=== PATIENT | female | born 1965 | race Caucasian/White ===

== ENCOUNTER 2019-11-12 07:41 | Outpatient (CLI) | payer MEDICARE, MEDICAID, SELFPAY ==
--- NOTE | 2019-11-12 08:18 | ECG_ITS ---
NAME OF STUDY: LEXISCAN SESTAMIBI STRESS TEST INDICATION: Chest Pain, NOTE: Please note that this is the electrocardiogram portion of the Lexiscan/Sestamibi stress test. The perfusion scan will be documented separately. DATA: Baseline heart rate was 68 beats per minute. Baseline blood pressure was 141/80 millimeters of mercury. Target heart rate was 165. Maximum heart rate achieved was 95. which was 57 % of the predicted target heart rate. Maximum blood pressure was 201/114 millimeters of mercury. The reason for ending the test was completion of the protocol. The patient did not experience any symptoms. ELECTROCARDIOGRAM: BASELINE: Sinus rhythm. Normal axis. Otherwise, no ST-T changes suggestive of ischemia noted. No arrhythmia noted. EXERCISE: After Lexiscan injection, no ST-T changes suggestive of ischemic noted. No arrhythmia noted. 1. EKG not suggestive of ischemia 2. Lexiscan injection unremarkable. 3. Perfusion scan will be documented separately. Electronically Signed On 11-19-2019 13:51:50 RN FORENSIC by Edwin Smith M.D. [id number]
--- NOTE | 2019-11-12 08:19 | NMCV_ITS ---
NM MIBI/MIBI Stress/Rest [id number] Anabel Fermin Age: 54 Gender: F : 1965 Exam Date: 11/12/2019 09:46 Ordering Phys: Edwin Smith MD ([email or web address]) Technologist: KSENIA Hernandez Exam [facility]: [facility] Indications: Chest pain, claudication STRESS TEST [facility] IMAGE PROTOCOL Rest/Stress 1 Lexiscan Day Radiopharmaceutical Dose (mCi) Administration Site Administered by Rest: Tc-99m 9.6 IV KSENIA Hernandez Sestamibi Stress:Tc-99m 31.4 IV KSENIA Hernandez Sestamibi Rest: 12-Nov-2019 60 Discovery 630 Stress: 12-Nov-2019 60 Discovery 630 0.4mg Lexiscan. Images obtained in supine and prone position. SPECT RESULTS Technical Quality: Good Raw Data Analysis: Soft tissue attenuation Image Corrections: No attenuation or motion correction applied Summed Stress Score: 2 Summed Rest Score: 0 Summed Difference Score: 2 PERFUSION FINDINGS SPECT images demonstrate homogeneous tracer distribution throughout the myocardium. FUNCTIONAL RESULTS (calculated via Gated SPECT) Stress Image LV EF (%): 74 Stress EDV (mL):42 TID: 1.21 Stress ESV (mL):11 Rest Image LV EF (%): 74 FUNCTIONAL FINDINGS: There is normal left ventricular systolic function. IMPRESSIONS Myocardial perfusion imaging is normal and low probability for obstructive coronary disease.TID ratio is elevated which could be secondary to left ventricle hypertrophy/subendocardial ischemia in the absence of other parameters. Edwin Smith MD (Electronically Signed) Final Date: 12 November 2019 12:44 S
[2019-11-12 08:20] VITALS: BMI 32.9
[2019-11-12] MEDS: regadenoson 0.4 Mg/5 ml Syringe IVP (10:59)
[2019-11-12 11:00] VITALS: BP 197/102; PULSE 89
--- NOTE | 2019-11-12 12:45 | USCV_ITS ---
Anabel Fermin Age: 54 Gender: F : 1965 Exam Date: 11/12/2019 11:02 Ordering Phys: Edwin Smith MD ([email or web address]) Technologist: Exam Location: [facility] [place] Indication: CLAUDICATION RIGHT LEFT Brachial 168.00 mmHg Brachial mmHg Pressure (mmHg) Waveform Pressure (mmHg) Waveform 194.00 DIRECTOR OF SECURITY 171.00 174.00 DPA 190.00 1.15 Ankle/Brachial Index 1.13 0.98 Post-Exercise Ankle Brachial Index 0.98 107.00 Pre-Exercise Toe Pressure 120.00 0.64 Pre-Exercise Toe/Brachial Index 0.71 FINDINGS Normal resting ABIs bilaterally Minimal post exercise SORAIDA Slightly diminished resting TBI on the right side New resting TBI on the left side CONCLUSIONS Features suggest mild peripheral artery disease bilaterally Dr Jayjay Ramirez MD [facility] (Electronically Signed) Final Date: 13 November 2019 10:15 S
== END 2019-11-12 07:42 | disposition home or self-care (01) ==
PROVIDERS: Family Provider Nurse Practitioner; PCP Nurse Practitioner; Visit Provider Internal Medicine Cardiovascular Disease
DX: R07.89 Other chest pain (principal); I73.9 Peripheral vascular disease, unspecified
CPT/HCPCS: 78452; 93017; 93922; A9500; J2785

== ENCOUNTER → 2019-12-13 13:00 | Outpatient (BNVA) | payer MEDICARE, MEDICAID, SELFPAY | PROVIDERS: Family Provider Nurse Practitioner; PCP Nurse Practitioner; Visit Provider Nurse Practitioner | DX: G89.29 Other chronic pain (principal); M54.2 Cervicalgia; M54.9 Dorsalgia, unspecified; Z79.891 Long term (current) use of opiate analgesic | CPT/HCPCS: 99214 ==

== ENCOUNTER → 2019-12-25 09:46 | Outpatient (BNVA) | payer MEDICARE, MEDICAID, SELFPAY | PROVIDERS: Family Provider Nurse Practitioner; PCP Nurse Practitioner; Visit Provider Nurse Practitioner | DX: M79.7 Fibromyalgia (principal); Z13.6 Encounter for screening for cardiovascular disorders; E55.9 Vitamin D deficiency, unspecified; G47.33 Obstructive sleep apnea (adult) (pediatric); I10 Essential (primary) hypertension; K21.9 Gastro-esophageal reflux disease without esophagitis | CPT/HCPCS: 80053; 80061; 82306; 84443 ==

== ENCOUNTER → 2020-02-05 13:17 | Outpatient (BNVA) | payer MEDICARE, SELFPAY | PROVIDERS: Family Provider Nurse Practitioner; PCP Nurse Practitioner; Visit Provider Anesthesiology | DX: Z76.89 Persons encountering health services in other specified circumstances (principal) ==

== ENCOUNTER → 2020-05-15 09:58 | Outpatient (BNVA) | payer MEDICARE, SELFPAY | PROVIDERS: Family Provider Nurse Practitioner; PCP Nurse Practitioner; Visit Provider Anesthesiology | DX: G89.29 Other chronic pain (principal); M54.42 Lumbago with sciatica, left side; M54.2 Cervicalgia; M54.9 Dorsalgia, unspecified; Z79.891 Long term (current) use of opiate analgesic | CPT/HCPCS: 99214 ==

== ENCOUNTER → 2020-07-08 09:06 | Outpatient (BNVA) | payer MEDICARE, SELFPAY | PROVIDERS: Family Provider Nurse Practitioner; PCP Nurse Practitioner; Visit Provider Anesthesiology | DX: G89.29 Other chronic pain (principal); M54.42 Lumbago with sciatica, left side; M54.41 Lumbago with sciatica, right side; M54.2 Cervicalgia; M54.9 Dorsalgia, unspecified; F17.210 Nicotine dependence, cigarettes, uncomplicated; Z79.891 Long term (current) use of opiate analgesic | CPT/HCPCS: 99213; 99214 ==

== ENCOUNTER → 2020-09-02 09:22 | Outpatient (BNVA) | payer MEDICARE, SELFPAY | PROVIDERS: Family Provider Nurse Practitioner; PCP Nurse Practitioner; Visit Provider Anesthesiology | DX: G89.29 Other chronic pain (principal); M54.2 Cervicalgia; M54.9 Dorsalgia, unspecified; F17.210 Nicotine dependence, cigarettes, uncomplicated; Z79.891 Long term (current) use of opiate analgesic | CPT/HCPCS: 99213; 99214 ==

== ENCOUNTER → 2020-09-25 10:26 | Outpatient (BNVA) | payer MEDICARE, SELFPAY | PROVIDERS: Family Provider Nurse Practitioner; PCP Nurse Practitioner; Visit Provider Nurse Practitioner Family | DX: Z20.828 Contact with and (suspected) exposure to other viral communicable diseases (principal); J44.1 Chronic obstructive pulmonary disease with (acute) exacerbation; J44.9 Chronic obstructive pulmonary disease, unspecified | CPT/HCPCS: 87635 ==

== ENCOUNTER → 2020-11-03 08:43 | Outpatient (BNVA) | payer MEDICARE, SELFPAY | PROVIDERS: Family Provider Nurse Practitioner; PCP Nurse Practitioner; Visit Provider Nurse Practitioner | DX: E11.69 Type 2 diabetes mellitus with other specified complication (principal); E78.5 Hyperlipidemia, unspecified; I10 Essential (primary) hypertension; E55.9 Vitamin D deficiency, unspecified | CPT/HCPCS: 80053; 80061; 82306; 84443; 85025 ==

== ENCOUNTER → 2020-11-10 13:41 | Outpatient (BNVA) | payer MEDICARE, SELFPAY | PROVIDERS: Family Provider Nurse Practitioner; PCP Nurse Practitioner; Visit Provider Anesthesiology | DX: G89.29 Other chronic pain (principal); M54.9 Dorsalgia, unspecified; M54.2 Cervicalgia; F17.210 Nicotine dependence, cigarettes, uncomplicated; Z79.891 Long term (current) use of opiate analgesic | CPT/HCPCS: 99214 ==

== ENCOUNTER → 2020-11-23 10:21 | Outpatient (BNVA) | payer MEDICARE, SELFPAY | PROVIDERS: Family Provider Nurse Practitioner; PCP Nurse Practitioner; Visit Provider Nurse Practitioner | DX: I10 Essential (primary) hypertension (principal); J44.9 Chronic obstructive pulmonary disease, unspecified; E55.9 Vitamin D deficiency, unspecified; K21.9 Gastro-esophageal reflux disease without esophagitis; G25.81 Restless legs syndrome; M79.7 Fibromyalgia; N95.2 Postmenopausal atrophic vaginitis; E78.2 Mixed hyperlipidemia; M19.90 Unspecified osteoarthritis, unspecified site | CPT/HCPCS: 80053; 81000; 85025 ==

== ENCOUNTER → 2020-12-08 09:38 | Outpatient (BNVA) | payer MEDICARE, SELFPAY | PROVIDERS: Family Provider Nurse Practitioner; PCP Nurse Practitioner; Visit Provider Anesthesiology | DX: G89.29 Other chronic pain (principal); M54.9 Dorsalgia, unspecified; M54.2 Cervicalgia; F17.210 Nicotine dependence, cigarettes, uncomplicated; Z79.891 Long term (current) use of opiate analgesic | CPT/HCPCS: 99214 ==

== ENCOUNTER → 2021-02-02 09:24 | Outpatient (BNVA) | payer MEDICARE, SELFPAY | PROVIDERS: Family Provider Nurse Practitioner; PCP Nurse Practitioner; Visit Provider Anesthesiology | DX: G89.29 Other chronic pain (principal); M54.9 Dorsalgia, unspecified; M54.2 Cervicalgia; F17.210 Nicotine dependence, cigarettes, uncomplicated; Z79.891 Long term (current) use of opiate analgesic | CPT/HCPCS: 99214 ==

== ENCOUNTER → 2021-02-25 10:05 | Outpatient (BNVA) | payer MEDICARE, SELFPAY | PROVIDERS: Family Provider Nurse Practitioner; PCP Nurse Practitioner; Visit Provider Nurse Practitioner | DX: E55.9 Vitamin D deficiency, unspecified (principal); I10 Essential (primary) hypertension; E78.2 Mixed hyperlipidemia; J44.9 Chronic obstructive pulmonary disease, unspecified | CPT/HCPCS: 80053; 82306; 82607; 84443; 85025 ==

== ENCOUNTER → 2021-04-09 09:30 | Outpatient (BNVA) | payer MEDICARE, SELFPAY | PROVIDERS: Family Provider Nurse Practitioner; PCP Nurse Practitioner; Visit Provider Anesthesiology | DX: G89.29 Other chronic pain (principal); M54.2 Cervicalgia; M54.9 Dorsalgia, unspecified; F17.210 Nicotine dependence, cigarettes, uncomplicated; Z79.891 Long term (current) use of opiate analgesic | CPT/HCPCS: 99213; 99214 ==

== ENCOUNTER 2021-04-20 12:04 | Emergency (ER) | payer MEDICARE, SELFPAY ==
[2021-04-20 12:16] VITALS: BP 188/121; PULSE 71; RESP 20; TEMP 36.7; O2SAT 96; BMI 30.7
--- NOTE | 2021-04-20 12:57 | ED_ITS ---
HPI - Animal Bite General: Chief Complaint: Animal Bite Stated Complaint: R hand animal bite Time Seen by Provider: 04/20/21 12:31 History of Present Illness: HPI narrative: Patient is a 56-year-old female who comes to the ED with cat bite on her right hand. Cat bite occurred yesterday. She says she takes an a lot of cats in. The cat that bit her she raised from , but it has not recieved rabies vaccinations. The cat is an outdoor cat as well. The bite occurred when her dog was chasing after the cat and she tried separate the cat and the dog. The cat then bit her right index finger.. She now has swelling and erythema warmth and right hand and index finger. Patient is unsure of last tetanus shot and would like to get an updated tetanus today in the ED. Patient denies any fever, chills, nausea/vomiting, abdominal pain, bladder or bowel symptoms. Associated symptoms: Deny chills, fever(s) or headache(s) Review of Systems Const: Denies: fever(s), chills or fatigue Eyes: Denies: change in vision or eye discomfort ENMT: Denies: throat pain, odynophagia, nasal discharge or nasal congestion Card: Denies: chest pain, palpitations, edema, swelling of feet/ankles, dyspnea on exertion or orthopnea Resp: Denies: dyspnea, productive cough or non-productive cough GI: Denies: abdominal pain, nausea, vomiting, diarrhea, constipation or hematochezia : Denies: flank pain, dysuria or hematuria Musc: Reports: extremity pain (right hand) and extremity swelling (right hand swelling); Denies: neck pain or back pain Skin/Breast: Reports: new lesions (2 bite madden on 2nd digit of R hand w/ surrounding erythema and swelling); Denies: rash Neuro: Denies: headache(s), numbness in extremities or weakness in extremities PFS ED PFSH: Medical History Atrophic vaginitis Chest pain Chronic back pain greater than 3 months duration COPD (chronic obstructive pulmonary disease) Encounter for long-term opiate analgesic use Enrolled in chronic care management Essential hypertension Fibromyalgia GERD (gastroesophageal reflux disease) History of trigger finger trigger finger release on right hand thumb, 2nd finger and 4th finger Hyperlipemia, mixed Neck pain of over 3 months duration Obesity Opioid contract exists ALFRED (obstructive sleep apnea) Osteoarthritis Polycythemia Restless legs Shortness of breath Vitamin D deficiency Surgical History Amputation of left arm History of carpal tunnel surgery of right wrist Hx laparoscopic cholecystectomy 05/18/09 Hx of amputation 1975 left arm due to tractor accident performed in [place] Hx of decompression of ulnar nerve right ulnar nerve transposition of right ulnar nerve 06/01/09 Hx of hysterectomy 1998 Hx of removal of cyst behind ear as child Hx of shoulder surgery open acromoplasty of right shoulder 03/17/10-Dr. Hall at [facility] [place] Family History Unknown No problems noted. Father Cancer Lung Hypertension Sister Hypertension Mother Stroke Social History Smoking and tobacco status: current some day smoker cigarettes Quit status (tobacco): has quit using tobacco Second hand smoke exposure: No Smoking risk assessment/counseling performed?: No Alcohol intake: never Desire information about alcohol rehabilitation?: No Counseling given: No Desire information about substance/drug rehabilitation?: No Counseling given: No Caregiver/support person: Yes Lives independently: Yes Household members: spouse Housing: House Marital status: service: No Current occupational status: employed Current occupation: [employer] History of recent travel: No Current gender identity: Female Physical Exam Const: COMMON NORMALS: no acute distress, patient oriented x3 and alert GE NERAL APPEARANCE: cooperative and comfortable HENMT: COMMON NORMALS: normocephalic HEAD & SCALP: normocephalic MOUTH: Normal oral and palatal mucosa present THROAT: posterior oropharynx normal and uvula midline Neck/C-Spine: COMMON NORMALS: supple GENERAL: Yes normal visual inspection Resp: COMMON NORMALS: normal respiratory effort, No retractions, No use of accessory muscles and clear to auscultation bilaterally AUSCULTATION: clear to auscultation bilaterally Cardio: COMMON NORMALS: regular rate, regular rhythm, S1 normal heart sound present, S2 normal heart sound present, No gallops present (Cardio), No clicks present (Cardio), No murmurs present (Cardio) and Peripheral pulses 2+ throughout RATE: regular rate RHYTHM: regular rhythm HEART SOUNDS: S1 normal heart sound present and S2 normal heart sound present PERIPHERAL PULSES: Peripheral pulses 2+ throughout GI: COMMON NORMALS: Normal to inspection, nondistended, normoactive bowel sounds present, Soft to palpation, non-tender and no masses PALPATION: Yes Soft to palpation : COMMON NORMALS: Yes no CVA tenderness BLADDER/KIDNEY EXAM: Yes no CVA tenderness Back/Pelvis: COMMON NORMALS: no CVA tenderness Extremity: NARRATIVE EXTREMITY EXAM: Patient is to superficial puncture wounds on second digit on right hand. She has surrounding erythema, warmth and tenderness and index finger and right hand. Exam findings suggestive of cellulitis developing from cat bite. GENERAL: Yes normal exam except as noted Neuro: COMMON NORMALS: patient oriented x3 and moves all extremities SENSORIUM/ORIENTATION: Yes alert Skin: NARRATIVE SKIN EXAM: Patient is to superficial puncture wounds on second digit on right hand. She has surrounding erythema, warmth and tenderness and index finger and right hand. No purulent drainage seen. Exam findings suggestive of cellulitis developing from cat bite. GENERAL SKIN EXAM: dry skin Course ED course: Spoke with patient about rabies vaccination and starting the postexposure prophylaxis shots today. Patient stated she would rather go home and self quarantine the cat and take it to animal control for observation. I told patient that if she is unable to do that the next 24 to 48 hours she can return to the ED immediately to get started on rabies vaccination series. Patient understood and agreed with plan. Vital Signs: Vital signs: Vital Signs Temperature 98.1 F 04/20/21 12:16 Pulse Rate 71 04/20/21 12:16 Respiratory Rate 20 H 04/20/21 12:16 Blood Pressure 188/121 04/20/21 12:16 Pulse Oximetry 96 04/20/21 12:16 MDM - Animal Bite MDM Narrative: Medical decision making narrative: Patient female comes to the ED with cat bite on right hand with swelling and redness of the right hand. Exam findings are suggestive of cat bite with cellulitis present. No purulent drainage noted. Patient was discharged home with a prescription for Augmentin and azithromycin. Return to ED precautions given. Follow-up with PCP in 7 days for reevaluation. Patient understood and agreed with plan. Discharge Plan Discharge Patient Disposition: Home Clinical Impression: Cat bite of right hand with infection Qualifiers: Encounter type: initial encounter Qualified Code(s): S61.451A - Open bite of right hand, initial encounter Condition: Stable Prescriptions: New azithromycin 250 mg tablet See Rx Instructions .ROUTE .COMPLEX Qty: 6 RF: 0 Augmentin 500-125 mg tablet 1 tab PO BID 10 Days Qty: 20 RF: 0 No Action nitroglycerin [Nitrostat] 0.4 mg tablet, sublingual 0.4 mg SUBLINGUAL ONCE PRNRF: 0 aspirin 81 mg tablet,delayed release (DR/EC) 81 mg PO DAILY RF: 0 albuterol sulfate 2.5 mg /3 mL (0.083 %) solution for nebulization 2.5 mg INHALATION Q6H RF: 0 furosemide [Lasix] 20 mg tablet 20 mg PO QAM Qty: 30 RF: 2 clonidine HCl 0.1 mg tablet 0.1 mg PO BID Qty: 60 RF: 0 cyclobenzaprine 10 mg tablet 10 mg PO TID PRN (Reason: muscle spasm) 30 Days Qty: 90 RF: 1 oxycodone 15 mg tablet 15 mg PO .5 times a day PRN (Reason: pain) 30 Days Qty: 150 RF: 0 oxycodone 15 mg tablet 15 mg PO .5 times a day PRN (Reason: pain) 30 Days Qty: 150 RF: 0 tramadol 50 mg tablet 50 mg PO QID PRN (Reason: pain) 30 Days Qty: 120 RF: 0 fenofibrate nanocrystallized 145 mg tablet 145 mg PO .QD Qty: 30 RF: 2 albuterol sulfate [ProAir HFA] 90 mcg/actuation HFA aerosol inhaler 2 inh INHALATION Q6H PRN (Reason: shortness of breath or wheezing) Qty: 8.5 RF: 2 cholecalciferol (vitamin D3) 125 mcg (5,000 unit) tablet 10,000 unit PO DAILY Qty: 60 RF: 2 esomeprazole magnesium 20 mg capsule,delayed release(DR/EC) 20 mg PO .QD Qty: 30 RF: 2 estradiol [Estrace] 0.01 % (0.1 mg/gram) cream 1 g vaginal .on & Qty: 42.5 RF: 0 ropinirole 2 mg tablet 2 mg PO DIRECTED Qty: 120 RF: 2 Spiriva Respimat 2.5 mcg/actuation mist 2 puff INHALATION DAILY Qty: 4 RF: 2 lisinopril 20 mg tablet 20 mg PO DAILY 30 Days Qty: 30 RF: 0 metoprolol tartrate 25 mg tablet 25 mg PO DAILY 30 Days Qty: 30 RF: 0 trazodone 50 mg tablet 50 mg PO .Q HS PRN (Reason: insomnia) Qty: 30 RF: 2 Discharge Orders: Discharge ED (Routine); Ordered 04/20/21 Ordered By: Miguel Randolph Referrals: Ban Lee, [facility] [Primary Care Provider] - Discharge Diet: Regular Discharge Activity: Resume usual activity Patient Instructions: Animal Bite (ED), Cellulitis (ED) Activity Restrictions/Additional Instructions: Follow-up with medical provider as directed in 5 to 7 days for reevaluation. Self quarantine the cat and take it to animal control for observation. If you are unable to do so you can return to the ED in the next 24 to 48 hours to start rabies vaccination series. Take medications as prescribed. Apply cold pack on hand to help with swelling. Take [id number] ibuprofen or Tylenol for pain. Return to the ER or your medical provider if condition worsens. Please read and understand discharge instructions. Thank you for choosing [facility] for your healthcare needs today. Please realize this is an emergency room and that we are providing you with a medical screening exam and this may not be complete and all inclusive of all the testing and or work up that you may need to determine your ailment or severity of your illness. It is very important that you follow up as instructed or that you return to the Emergency Department should you have concerns or if your condition changes or worsens in any way. Coding Level of Care Code ED Scientific Systems Analyst for Scooby Roper Exam Comprehensive
[2021-04-20] MEDS: tetanus-dipt-pertussis 0.5 mL SDV IM (13:29)
[2021-04-20] MEDS: amoxicillin-clav 500-125 mg Tablet 1 TAB PO (13:30)
[2021-04-20] MEDS: HYDROcodone-acetaminophen 7.5-325 mg Tablet 1 TAB PO (13:30)
--- NOTE | 2021-04-20 13:32 | PC.NURSE ---
This RN reported animal bite to [facility]'s Office. Pt aware. Pt refusing rabies treatment as she is taking her cat to animal control to be tested. Pt refused to this RN and Miguel THAKUR.
== END 2021-04-20 13:35 | disposition home or self-care (01) ==
PROVIDERS: Emergency Provider Physician Assistant; PCP Nurse Practitioner
DX: S61.451A Open bite of right hand, initial encounter (principal); W55.01XA Bitten by cat, initial encounter; Z79.82 Long term (current) use of aspirin; J44.9 Chronic obstructive pulmonary disease, unspecified; I10 Essential (primary) hypertension; E78.2 Mixed hyperlipidemia; Z89.202 Acquired absence of left upper limb, unspecified level; F17.210 Nicotine dependence, cigarettes, uncomplicated; Z23 Encounter for immunization
CPT/HCPCS: 90471; 90715; 99283

== ENCOUNTER → 2021-06-08 10:10 | Outpatient (BNVA) | payer MEDICARE, SELFPAY | PROVIDERS: PCP Nurse Practitioner; Visit Provider Anesthesiology | DX: G89.29 Other chronic pain (principal); M54.2 Cervicalgia; M54.5 Low back pain; F17.210 Nicotine dependence, cigarettes, uncomplicated; Z79.891 Long term (current) use of opiate analgesic | CPT/HCPCS: 99214 ==

== ENCOUNTER → 2021-07-09 09:51 | Outpatient (BNVA) | payer MEDICARE, SELFPAY | PROVIDERS: PCP Nurse Practitioner; Visit Provider Nurse Practitioner Family | DX: I10 Essential (primary) hypertension (principal); J44.9 Chronic obstructive pulmonary disease, unspecified; E78.2 Mixed hyperlipidemia; M79.7 Fibromyalgia; E55.9 Vitamin D deficiency, unspecified; K21.9 Gastro-esophageal reflux disease without esophagitis; G25.81 Restless legs syndrome; R32 Unspecified urinary incontinence | CPT/HCPCS: 80053; 80061; 84443; 85025 ==

== ENCOUNTER → 2021-08-03 09:22 | Outpatient (BNVA) | payer MEDICARE, SELFPAY | PROVIDERS: PCP Nurse Practitioner; Visit Provider Anesthesiology | DX: G89.29 Other chronic pain (principal); M54.5 Low back pain; M54.2 Cervicalgia; Z79.891 Long term (current) use of opiate analgesic | CPT/HCPCS: 99214 ==

== ENCOUNTER → 2021-10-08 09:14 | Outpatient (BNVA) | payer MEDICARE, SELFPAY | PROVIDERS: PCP Nurse Practitioner; Visit Provider Anesthesiology | DX: G89.29 Other chronic pain (principal); M54.50 Low back pain, unspecified; M54.2 Cervicalgia; Z79.891 Long term (current) use of opiate analgesic; F17.200 Nicotine dependence, unspecified, uncomplicated; Z71.6 Tobacco abuse counseling | CPT/HCPCS: 99214; 99406 ==

== ENCOUNTER → 2021-11-08 10:15 | Outpatient (BNVA) | payer MEDICARE, SELFPAY | PROVIDERS: PCP Nurse Practitioner; Visit Provider Nurse Practitioner Family | DX: I10 Essential (primary) hypertension (principal); E78.2 Mixed hyperlipidemia; E55.9 Vitamin D deficiency, unspecified; G25.81 Restless legs syndrome; R32 Unspecified urinary incontinence; K21.9 Gastro-esophageal reflux disease without esophagitis; G47.00 Insomnia, unspecified | CPT/HCPCS: 80053; 80061; 82306; 84443; 84484; 85025 ==

== ENCOUNTER 2021-11-12 09:31 | Emergency (ER) | payer MEDICARE, SELFPAY ==
[2021-11-12] VITALS (8 sets, daily range): BP systolic 138–240; BP diastolic 72–112; PULSE 67–87; RESP 18; TEMP 37.1; O2SAT 97–100; BMI 31.1
--- NOTE | 2021-11-12 09:33 | ECG_ITS ---
[facility] Test Date: 2021-11-12 Pat Name: Anabel Fermin Department: Room: Gender: Female Motor Vehicle Salesperson: : 1965 Requested By: Diane Ann Order Number: [id number] Estela MD: Jayajy Ramirez M.D. Measurements Intervals Logan Rate: 67 P: 76 MN: 179 QRS: 54 QRSD: 82 T: 57 QT: 415 QTc: 439 Interpretive Statements SINUS RHYTHM POSSIBLE RIGHT ATRIAL ENLARGEMENT [0.25mV P-WAVE] POSSIBLE LEFT ATRIAL ENLARGEMENT [-0.1mV P-WAVE IN V1/V2] No previous ECG available for comparison Electronically Signed On 11-12-2021 17:53:01 CREATIVE SERVICES DIRECTOR by Jayjay Ramirez M.D. [id number]
--- NOTE | 2021-11-12 09:40 | W.ED.GENADLT ---
HPI - General Adult General: Chief complaint: General Medical Stated complaint: HYPERTENSION Time Seen by Provider: 11/12/21 09:40 History of Present Illness: HPI narrative: 56 yo female with complaints of elevated BP. She did take her medicaitons this AM. SHe recently had her lisinopril and metoprolol increased. She is complaining of a headache. she denies any chest pain. No difficulty speech or swallowing no shortness of breath no nausea vomiting or diarrhea initially. She has been having elevated blood pressure problems for well over a week now. Onset (ago): hour(s) Location: head Severity: mild Relieving factors: none Exacerbating factors: none Associated symptoms: Deny chest pain, confusion, cough, diaphoresis, decreased appetite, dyspnea, fevers/chills, headache(s), malaise, nausea, rash, palpitations, seizures, short of breath, syncope, vomiting or weakness Treatments prior to arrival: none Review of Systems Const: Denies: malaise or diaphoresis ENMT: Denies: throat pain, ear or mastoid pain, nasal discharge or nasal congestion Card: Denies: chest pain, palpitations or syncope Resp: Denies: dyspnea GI: Denies: nausea or vomiting : Denies: flank pain, difficulty voiding, dysuria, urinary frequency or urinary urgency Skin/Breast: Denies: rash Neuro: Denies: headache(s) or confusion PFSH ED PFSH: Medical History Atrophic vaginitis Chest pain Chronic back pain greater than 3 months duration Chronic neck and back pain COPD (chronic obstructive pulmonary disease) Encounter for long-term opiate analgesic use Enrolled in chronic care management Essential hypertension Fibromyalgia GERD (gastroesophageal reflux disease) History of trigger finger trigger finger release on right hand thumb, 2nd finger and 4th finger Hyperlipemia, mixed Neck pain of over 3 months duration Obesity Opioid contract exists ALFRED (obstructive sleep apnea) Osteoarthritis Polycythemia Restless legs Shortness of breath Vitamin D deficiency Surgical History Amputation of left arm History of carpal tunnel surgery of right wrist Hx laparoscopic cholecystectomy 05/18/09 Hx of amputation 1976 left arm due to tractor accident performed in [place] Hx of decompression of ulnar nerve right ulnar nerve transposition of right ulnar nerve 06/01/09 Hx of hysterectomy 1998 Hx of removal of cyst behind ear as child Hx of shoulder surgery open acromoplasty of right shoulder 03/17/10-Dr. Hall at [facility] [place] Family History Unknown No problems noted. Father Cancer Lung Hypertension Sister Hypertension Mother Stroke Social History Second hand smoke exposure: No Smoking risk assessment/counseling performed?: Yes Tobacco counseling given: provider counseling and counseling >3 minutes Alcohol intake: never Desire information about alcohol rehabilitation?: No Counseling given: No Desire information about substance/drug rehabilitation?: No Counseling given: No Caregiver/support person: Yes Lives independently: Yes Household members: spouse Housing: House Marital status: service: No Current occupational status: employed Current occupation: [employer] History of recent travel: No Current gender identity: Female Physical Exam Const: COMMON NORMALS: no acute distress GENERAL APPEARANCE: cooperative and comfortable ORIENTATION/CONSCIOUSNESS: Yes awake, Yes oriented to person, Yes oriented to place and Yes oriented to time Neck/C-Spine: COMMON NORMALS: no JVD Resp: COMMON NORMALS: normal respiratory effort, No retractions, No use of accessory muscles and clear to auscultation bilaterally AUSCULTATION: clear to auscultation bilaterally Cardio: COMMON NORMALS: no JVD, regular rate, regular rhythm and No murmurs present (Cardio) RATE: regular rate RHYTHM: regular rhythm GI: COMMON NORMALS: Soft to palpation and No hepatosplenomegaly present AUSCULTATION: Yes normoactive bowel sounds PALPATION: Yes Soft to palpation, No Tenderness to palpation present (GI), No Guarding due to palpation present (GI) and Yes No hepatosplenomegaly present Extremity: COMMON NORMALS: normal to inspection, capillary refill normal, no clubbing, cyanosis or edema, no calf tenderness and no pedal edema Neuro: SENSORIUM/ORIENTATION: Yes oriented to person, Yes oriented to place and Yes oriented to time Skin: COMMON NORMALS: no rashes or lesions noted GENERAL SKIN EXAM: no rashes or lesions noted Course Vital Signs: Vital signs: Vital Signs Temperature 98.7 F 11/12/21 09:32 Pulse Rate 87 11/12/21 14:30 Respiratory Rate 18 11/12/21 14:30 Blood Pressure 148/72 11/12/21 14:30 Pulse Oximetry 98 11/12/21 14:30 MDM - General Adult MDM Narrative: Medical decision making narrative: Blood pressure is improved. She did have a transient episode where she got very nauseous and threw up several times it was shortly after her blood pressure decreased about 10 minutes after receiving some IV medications. Was concerned due to head CT discussed with Dr. Davis she had some concerning finding around the vertebrals which did fit clinically with what we had seen with the patient in the emergency room. I was concerned that she may have developed poor perfusion in the posterior circulation with her blood pressure decreasing. Her symptoms resolved the CTA was done Dr. Davis and I discussed Dr. Davis reports she does not see any sign of stenosis or embolism and that distribution. Patient symptoms of all resolved her blood pressure is better and she is feeling much better she like to go home. We will stop her metoprolol tartrate changed her to Toprol-XL 25 mg daily and add amlodipine 10 mg daily and have her follow-up with her primary care doctor within the next week return to the emergency room if she has any further problems. Lab Data: Labs: Lab Results 11/12/21 11/12/21 11/12/21 09:46 09:46 10:44 WBC 6.7 10^3/uL 10^3/ uL (4.0-10.0) RBC 5.75 10^6/uL H 10 ^6/uL (4.1-5.3) Hgb 16.2 g/dL H g/dL (11.5-15.3) Hct 50.9 % H % (37.0-47.0) MCV 88.5 fl fl (81-99) MCH 28.2 pg pg (28.0-34.0) MCHC 31.8 g/dL g/dL (30.0-36.0) RDW 13.2 % % (12.1-15.1) Plt Count 285 10^3/cmm 10^3 /cmm (130-400) MPV 9.7 fL fL (7.4-10.4) Neut % (Auto) 63.7 % % Lymph % (Auto) 25.6 % % [place] % (Auto) 8.3 % % Eos % (Auto) 1.9 % % Baso % (Auto) 0.4 % % Neut # (Auto) 4.26 10^3/uL 10^3 /uL (1.8-7.7) Lymph # (Auto) 1.7 10^3/uL 10^3/ uL (0.8-4.8) [place] # (Auto) 0.6 10^3/uL 10^3/ uL (0.2-0.9) Eos # (Auto) 0.1 10^3/uL 10^3/ uL (0.0-0.8) Baso # (Auto) 0.0 10^3/uL 10^3/ uL (0.0-0.1) Nucleated RBC % (a uto) 0 % % Nucleated RBCs # 0.0 /100WBC /100W BC Sodium 139 mmol/L mmol/L (136-145) Potassium 4.4 mmol/L mmol/L (3.5-5.1) Chloride 105 mmol/L mmol/L (98-107) Carbon Dioxide 23 mmol/L mmol/L (22-29) Anion Gap 15.4 (5-19) BUN 14 mg/dL mg/dL (6-20) Creatinine 0.8 mg/dL mg/dL (0.5-0.9) GFR Calculation 73.9 mL/min L mL/ min (90-130) Glucose 102 mg/dL mg/dL (65-115) Calculated Osmolal ity 289 mOsm/kg mOsm/ kg (285-295) Calcium 8.3 mg/dL L mg/dL (8.5-10.5) Total Bilirubin 0.2 mg/dL mg/dL (0.15-1.2) AST 12 U/L U/L (0-32) ALT 12 U/L U/L (0-33) Alkaline Phosphata se 105 IU/L IU/L (35-105) Total Protein 6.8 g/dL g/dL (6.6-8.7) Albumin 3.9 g/dL g/dL (3.5-5.2) Globulin 2.9 g/dL g/dL (1.3-4.6) Urine Color Yellow (Yellow) Urine Appearance Cloudy (CLEAR) Urine pH 7 (5-7) Ur Specific Gravit y 1.015 (1.005-1.030) Urine Protein Neg (Negative) Urine Glucose (UA) Norm (Normal) Urine Ketones Negative (Negative) Urine Blood 2+ H (Negative) Urine Nitrate Positive H (Negative) Urine Bilirubin Neg (Negative) Urine Urobilinogen Norm mg/dL mg/dL (Negative) Ur Leukocyte Nena ase Negative (Negative) Urine RBC 0-4 /hpf H /hpf (0-2) Urine WBC 5-10 /hpf H /hpf (0-5) Ur Squamous Epith Cells 0-4 /hpf H /hpf (0-5) Amorphous Sediment Not Reportable Urine Bacteria 3+ /hpf H /hpf (NONE) Discharge Plan Discharge Patient Disposition: Home Clinical Impression: Accelerated hypertension Condition: Stable Prescriptions: New amlodipine 10 mg tablet 10 mg PO DAILY Qty: 30 RF: 0 Toprol XL 25 mg tablet extended release 24 hr 25 mg PO DAILY Qty: 30 RF: 0 Discontinued metoprolol tartrate 25 mg tablet 25 mg PO BID 30 Days Qty: 60 RF: 2 No Action oxycodone 15 mg tablet 15 mg PO .5 times a day PRN (Reason: pain) 30 Days Qty: 150 RF: 0 tramadol 50 mg tablet 50 mg PO QID PRN (Reason: pain) 30 Days Qty: 120 RF: 0 tizanidine 4 mg tablet 4 mg PO BID PRN (Reason: muscle spasticity) 30 Days Qty: 60 RF: 1 furosemide [Lasix] 20 mg tablet 20 mg PO QAM Qty: 30 RF: 2 albuterol sulfate [ProAir HFA] 90 mcg/actuation HFA aerosol inhaler 2 inh INHALATION Q6H PRN (Reason: shortness of breath or wheezing) Qty: 8.5 RF: 2 clonidine HCl 0.1 mg tablet 0.1 mg PO BID PRN (Reason: use SBP >180 or DBP>90 ) RF: 0 trazodone 50 mg tablet 50 mg PO BEDTIME PRN (Reason: insomnia) RF: 0 oxybutynin chloride 10 mg tablet extended release 24hr 10 mg PO QAM RF: 0 lisinopril 20 mg tablet 20 mg PO BEDTIME RF: 0 ropinirole 2 mg tablet See Rx Instructions .ROUTE .COMPLEX RF: 0 esomeprazole magnesium 20 mg capsule,delayed release(DR/EC) 20 mg PO BEDTIME RF: 0 fenofibrate nanocrystallized 145 mg tablet 145 mg PO QAM RF: 0 cholecalciferol (vitamin D3) 125 mcg (5,000 unit) tablet 10,000 unit PO QAM RF: 0 Spiriva Respimat 2.5 mcg/actuation mist 2 puff INHALATION QAM RF: 0 Discharge Orders: Discharge ED (Routine); Ordered 11/12/21 Ordered By: Robin Almanza Referrals: Ban Lee, [employer] [Primary Care Provider] - Discharge Diet: Usual diet Discharge Activity: Limit activity as instructed Patient Instructions: Opioid Safety Activity Restrictions/Additional Instructions: Follow-up with your primary care doctor within the week to reevaluate blood pressure. Coding Level of Care Code ED Television Production Assistant for Scooby Fwd Exam Detailed NIH stroke score NIHSS Level Of Consciousness - 1a: 0 Level Of Consciousness Questions - 1b: Both Correct Level Of Consciousness Commands - 1c: Both Correct Best Gaze - 2: Normal Visual Lechuga - 3: No Visual Loss Facial Palsy - 4: Normal Motor Arm Right - 5: No Drift Motor Arm Left - 5: No Drift Motor Leg Right - 6: No Drift Motor Leg Left - 6: No Drift Limb Ataxia - 7: Absent Sensory - 8: Normal Best Language - 9: No Aphasia Dysarthia - 10: Normal Extinction And Inattention - 11: 0 Score Total Score: 0
[2021-11-12 09:58] LABS: Basophils % 0.4 %; Eosinophils # 0.1 10^3/uL (0.0-0.8); Eosinophils % 1.9 %; Hematocrit 50.9 % (37.0-47.0); Hemoglobin 16.2 g/dL (11.5-15.3); Lymphocytes # 1.7 10^3/uL (0.8-4.8); Lymphocytes % 25.6 %; Mean Corpuscular HGB Conc 31.8 g/dL (30.0-36.0); Mean Corpuscular Hemoglobin 28.2 pg (28.0-34.0); Mean Corpuscular Volume 88.5 fl (81-99); Mean Platelet Volume 9.7 fL (7.4-10.4); Monocytes # 0.6 10^3/uL (0.2-0.9); Monocytes % 8.3 %; Neutrophils # 4.26 10^3/uL (1.8-7.7); Neutrophils % 63.7 %; Nucleated Red Blood Cells % 0 %; Platelet Count 285 10^3/cmm (130-400); Red Blood Count 5.75 10^6/uL (4.1-5.3); Red Cell Distribution Width 13.2 % (12.1-15.1); White Blood Count 6.7 10^3/uL (4.0-10.0)
[2021-11-12] MEDS: metoprolol succinate ER (24 HR) 25 mg Tablet PO (10:01)
[2021-11-12] MEDS: amlodipine 10 mg Tablet PO (10:02)
[2021-11-12 10:12] LABS: Alanine Aminotransferase 12 U/L (0-33); Albumin Level 3.9 g/dL (3.5-5.2); Alkaline Phosphatase 105 IU/L (35-105); Anion Gap 15.4 (5-19); Aspartate Amino Transferase 12 U/L (0-32); Blood Urea Nitrogen 14 mg/dL (6-20); Calcium 8.3 mg/dL (8.5-10.5); Carbon Dioxide 23 mmol/L (22-29); Chloride 105 mmol/L (98-107); Globulin 2.9 g/dL (1.3-4.6); Glomerular Filtration Rate 73.9 mL/min (90-130); Glucose 102 mg/dL (65-115); Osmolality Calculated 289 mOsm/kg (285-295); Potassium 4.4 mmol/L (3.5-5.1); Sodium 139 mmol/L (136-145); Total Bilirubin 0.2 mg/dL (0.15-1.2); Total Protein 6.8 g/dL (6.6-8.7)
--- NOTE | 2021-11-12 10:39 | PC.PHAR ---
PT STATES SHE TAKES CARE OF HER OWN MEDICATIONS-PT STATES SHE HASNT TAKEN A 81MG ASPIRIN IN A YEAR-PT STATES SHE NO LONGER HAS ANY NITRO PT STATES SHE NEVER USED AND THREW IT AWAY AFTER A YEAR-
[2021-11-12] MEDS: hyDRALAzine 20 mg/mL INJ 1 mL IVP (10:47)
[2021-11-12] MEDS: labetalol 5 mg/mL SDV 20mL 10 MG IVP (10:47)
[2021-11-12 10:55] LABS: Add Urine Microscopic? YES; Bilirubin Urine Neg (Negative); Blood Urine 2+ (Negative); Glucose Urine UA Norm (Normal); Ketones Urine Negative (Negative); Leukocyte Esterase Urine Negative (Negative); Nitrate Urine Positive (Negative); Protein Urine Neg (Negative); Specific Gravity, Urine 1.015 (1.005-1.030); Urine Appearance Cloudy (CLEAR); Urine Color Yellow (Yellow); Urobilinogen Urine Norm (Negative); pH Urine 7 (5-7)
[2021-11-12 11:06] LABS: Add Urine Culture? Yes; Bacteria Urine 3+ /hpf; RBC Urine 0-4 /hpf (0-2); Squamous Epithelial Cell Urine 0-4 /hpf (0-5)
--- NOTE | 2021-11-12 11:16 | CT_ITS ---
WS: [id number] CT HEAD NONCONTRAST HISTORY: headache/ n/v TECHNIQUE: Contiguous axial imaging performed through the brain in 2.5 mm imaging. Bone and soft tiss ue windows. Sagittal and coronal reformats reviewed. All CT scans at [facility] use at least one of these dose optimization techniques: automated exposure control; mA and/or kV adjustment per pa tient size (includes targeted exams where dose is matched to clinical indication); or iterative recon struction. DLP: 778.63 mGy.cm COMPARISON: 06/04/2010 No acute intracranial hemorrhage, midline shift or mass effect. No significant atrophy. There is a small lacunar infarct in the LEFT basal ganglia. No prior large te rritory infarct. Ventricles: Normal size with no hydrocephalus. There is marked increased density within the distal vertebral and the basilar artery. Increased densi ty extends very slightly into the posterior cerebral arteries. Cannot exclude acute thrombus. Paranasal sinuses: As visualized are clear. Mastoid air cells: Small amount of fluid in the RIGHT mastoid air cells. Calvarium and scalp: Skull is intact with no soft tissue edema or swelling. CT/CT head wo con* [id number] IMPRESSION: 1. Increased density within the distal vertebral and basilar arteries. Cannot exclude acute thrombus. Recommend CT angiogram [place] of [place]. 2. Mild atrophy. No acute focal effacement. Notified Robin Almanza DO at 11/12/2021 11:57 PM.
--- NOTE | 2021-11-12 11:17 | ECG_ITS ---
[facility] Test Date: 2021-11-12 Pat Name: Anabel Fermin Department: Room: Gender: Female Or Rn: : 1965 Requested By: Robin Echols Order Number: [id number] Estela MD: Jayjay Ramirez M.D. Measurements Intervals [place] Rate: 70 P: 51 MN: 144 QRS: 58 QRSD: 86 T: 52 QT: 424 QTc: 460 Interpretive Statements SINUS RHYTHM Compared to ECG 11/12/2021 09:51:10 No significant changes Electronically Signed On 11-12-2021 17:53:18 BOAT REPAIRER by Jayjay Ramirez M.D. [id number]
--- NOTE | 2021-11-12 11:17 | XR_ITS ---
WS: [id number] Portable AP upright chest, 11/12/2021 Clinical Data: dyspnea/cough Comparison: PA and lateral chest, 12/26/2018. Findings: No nodules, masses or effusions are seen. The heart is normal. The pulmonary vascularity is not increased. No pneumonia or pneumothorax is seen. There is pleural reaction at the left costophre adriel angle. The aortic arch and descending thoracic aorta show minimal calcification and tortuosity. T here are monitor leads on the chest wall. XR/XR chest 1V portable [id number] Impression: Atherosclerosis.
--- NOTE | 2021-11-12 11:27 | PC.NURSE ---
Nurse notified that patient was having increased shortness of breath, and was nauseated. RN entered room noted that patient was sitting on the side of the bed and was panting. EKG completed noted no changes. Vital signs stable at this time. Patient voiced she is improving.
--- NOTE | 2021-11-12 11:56 | CT_ITS ---
WS: [id number] CT ANGIOGRAM CEREBRAL AND CAROTID ARTERIES HISTORY: sudden n/v TECHNIQUE: CT angiogram is performed of the carotid and cerebral arteries. During arterial injection imaging is obtained from the skull vertex to the aortic arch in 1.25 mm imaging. Coronal and sagittal reformats are submitted. Additional multi planar reformats of the carotid and cerebral arteries are submitted, MIP imaging also reviewed. NASCET criteria utilized. [facility] CT [facility] e at least one of these dose optimization techniques: automated exposure control; mA and/or kV adjust ment per patient size (includes targeted exams where dose is matched to clinical indication); or iter ative reconstruction. CONTRAST: Omnipaque 350; 95 mL IV. DLP: 2269.32 mGy.cm COMPARISON: None available. Carotid Angiogram: Right carotid: Common carotid artery: Arises normally from the innominate artery. No significant plaque or stenosis. Internal carotid artery: Mild calcified plaque at the origin. No stenosis. External carotid artery: Patent. Left carotid: Common carotid artery: Arises normally from the aorta. No significant plaque or stenosis. Internal carotid artery: Mild plaque at the origin. No high-grade stenosis. External carotid artery: Patent. Right vertebral artery: Unremarkable. Left vertebral artery: Normally arises from the LEFT subclavian artery. There are a few tiny calcifie d plaques with no stenosis. Subclavian arteries: RIGHT subclavian is being obscured by the injection contrast. Upper thorax: Paraseptal emphysema. Thyroid gland: Normal. Osseous structures: Mild cervical spondylosis. No fractures. CEREBRAL ANGIOGRAM: Intracranial vertebral arteries: Normal caliber intracranial vertebral arteries. No thrombus or occlu viridiana. There is small amount of plaque in the distal LEFT vertebral artery. Basilar artery: Normal caliber. Thrombus. Intracranial Internal carotid arteries: Mild scattered calcified plaque with no occlusions. Middle cerebral arteries: Normal. Anterior cerebral arteries and ACOM: Normal. Posterior cerebral arteries and PCOM's: Normal. Dural venous sinuses are normally enhancing. Mastoid air cells: Small amount of fluid in the RIGHT mastoid air cells. Paranasal sinuses: Normal. Calvarium: No fracture. There are multiple nodules within the scalp which are partially calcified. Th palmer are probably sebaceous cyst. CT/CT angio headneck* [id number] IMPRESSION: 1. No significant carotid artery stenosis. No thrombus or occlusion. 2. No thrombus or occlusion within the basilar artery or the distal vertebral arteries. The increased density seen on the noncontrast CT may have been relate d to slow flow of blood. Notified Robin Almanza DO at 11/12/2021 2:01 PM.
[2021-11-12] MEDS: sodium chloride 0.9% 500 ML 999 ML IV (12:46)
[2021-11-12] MEDS: ropinirole 1 mg Tablet 0.5 MG PO (13:26)
[2021-11-12] MEDS: iohexol 350 mg/mL 100 mL Btl IV (13:37)
== END 2021-11-12 14:38 | disposition home or self-care (01) ==
PROVIDERS: Physician Assistant; Emergency Provider Family Medicine; PCP Nurse Practitioner
DX: I10 Essential (primary) hypertension (principal); J44.9 Chronic obstructive pulmonary disease, unspecified; E78.2 Mixed hyperlipidemia; Z89.202 Acquired absence of left upper limb, unspecified level
CPT/HCPCS: 70450; 70496; 70498; 71045; 80053; 81001; 85025; 87077; 87086; 87186; 93005; 96374; 96375; 99284; J0360; J3490; J7040; Q9967

== ENCOUNTER → 2021-12-15 10:13 | Outpatient (BNVA) | payer MEDICARE, SELFPAY | PROVIDERS: PCP Nurse Practitioner; Visit Provider Anesthesiology | DX: G89.29 Other chronic pain (principal); M54.50 Low back pain, unspecified; M54.2 Cervicalgia; F17.210 Nicotine dependence, cigarettes, uncomplicated; Z79.891 Long term (current) use of opiate analgesic | CPT/HCPCS: 99214 ==

== ENCOUNTER → 2022-03-11 11:36 | Outpatient (BNVA) | payer MEDICARE, SELFPAY | PROVIDERS: PCP Family Medicine; Visit Provider Family Medicine | DX: E55.9 Vitamin D deficiency, unspecified (principal); I10 Essential (primary) hypertension; E78.2 Mixed hyperlipidemia; M54.9 Dorsalgia, unspecified; G89.29 Other chronic pain; M54.2 Cervicalgia; G25.81 Restless legs syndrome; K21.9 Gastro-esophageal reflux disease without esophagitis; J44.9 Chronic obstructive pulmonary disease, unspecified; G47.00 Insomnia, unspecified | CPT/HCPCS: 80053; 80061; 82306; 84443; 85025 ==

== ENCOUNTER → 2022-04-12 15:24 | Outpatient (BNVA) | payer MEDICARE, SELFPAY | PROVIDERS: PCP Family Medicine; Visit Provider Family Medicine | DX: R10.9 Unspecified abdominal pain (principal); N20.0 Calculus of kidney; M54.9 Dorsalgia, unspecified; G89.29 Other chronic pain; M54.2 Cervicalgia | CPT/HCPCS: 81003; 87077; 87086; 87184 ==

== ENCOUNTER → 2022-11-08 12:26 | Outpatient (BNVA) | payer OTHER, SELFPAY | PROVIDERS: PCP Family Medicine; Visit Provider Family Medicine | DX: J44.9 Chronic obstructive pulmonary disease, unspecified (principal); I10 Essential (primary) hypertension; K21.9 Gastro-esophageal reflux disease without esophagitis; H66.93 Otitis media, unspecified, bilateral; E78.2 Mixed hyperlipidemia; E55.9 Vitamin D deficiency, unspecified | CPT/HCPCS: 80053; 80061; 82306; 84443; 85025 ==

== ENCOUNTER → 2023-05-10 11:35 | Outpatient (BNVA) | payer MEDICARE, SELFPAY | PROVIDERS: PCP Family Medicine; Visit Provider Family Medicine | DX: E55.9 Vitamin D deficiency, unspecified (principal); I10 Essential (primary) hypertension; E78.2 Mixed hyperlipidemia | CPT/HCPCS: 80053; 80061; 82306; 84443 ==

== ENCOUNTER 2023-06-20 13:04 | Emergency (ER) | payer MEDICARE, MEDICAID, SELFPAY ==
[2023-06-20 13:07] VITALS: BP 226/104; PULSE 71; RESP 18; TEMP 37; O2SAT 99
--- NOTE | 2023-06-20 13:13 | XRR_ITS ---
PROCEDURE INFORMATION: Exam: XR Chest Exam date and time: 06/20/2023 1:33 PM Age: 58 years old Clinical indication: Pain; Angina pectoris; Additional info: Chest pain TECHNIQUE: Imaging protocol: Radiologic exam of the chest. Views: 1 view. COMPARISON: CR XR chest 1V portable [id number] 11/12/2021 11:46 AM FINDINGS: Lungs: Unremarkable. No consolidation. Pleural spaces: Unremarkable. No pleural effusion. No pneumothorax. Heart/Mediastinum: Unremarkable. No cardiomegaly. Bones/joints: Unremarkable. XR/XR chest 1V portable [id number] IMPRESSION: No acute findings.
--- NOTE | 2023-06-20 13:14 | ECG_ITS ---
[facility] Test Date: 2023-06-20 Pat Name: Anabel Fermin Department: Room: Gender: Female Truck Service Technician: : 1965 Requested By: Chacho Barrientos Order Number: [id number] Estela MD: Eli Goins M.D. Measurements Intervals [place] Rate: 68 P: 66 [place]: 181 QRS: 51 QRSD: 85 T: 51 QT: 414 QTc: 442 Interpretive Statements SINUS RHYTHM POSSIBLE RIGHT ATRIAL ENLARGEMENT [0.25mV P-WAVE] Compared to ECG 11/12/2021 11:23:51 No significant changes Electronically Signed On 06-20-2023 16:59:13 CDT by Eli Goins M.D. [id number]
[2023-06-20 13:29] LABS: Basophils % 0.4 %; Eosinophils # 0.1 10^3/uL (0.0-0.8); Eosinophils % 1.5 %; Hematocrit 47.7 % (37.0-47.0); Hemoglobin 15.6 g/dL (11.5-15.3); Lymphocytes # 1.8 10^3/uL (0.8-4.8); Lymphocytes % 19.5 %; Mean Corpuscular HGB Conc 32.7 g/dL (30.0-36.0); Mean Corpuscular Hemoglobin 28.1 pg (28.0-34.0); Mean Corpuscular Volume 85.8 fl (81-99); Mean Platelet Volume 9.7 fL (7.4-10.4); Monocytes # 0.6 10^3/uL (0.2-0.9); Monocytes % 6.3 %; Neutrophils # 6.69 10^3/uL (1.8-7.7); Nucleated Red Blood Cells % 0 %; Platelet Count 249 10^3/cmm (130-400); Red Blood Count 5.56 10^6/uL (4.1-5.3); Red Cell Distribution Width 13.2 % (12.1-15.1); White Blood Count 9.3 10^3/uL (4.0-10.0)
--- NOTE | 2023-06-20 13:31 | W.ED.CHESTPA ---
HPI - Chest Pain General: Chief Complaint: Chest Pain Stated Complaint: Chest pain Time Seen by Provider: 06/20/23 13:05 History of Present Illness: Patient began having left-sided chest pressure that radiated to her back. Patient just states she has a headache and chronic neck pain that was not worsened by this. Patient has taken 3 nitro and 3 and 24 mg aspirin. Patient is now pain free. Patient is never had pain like this before. She describes more as a pressure than a pain patient denies any nausea vomiting diarrhea diaphoresis. Patient does have a history of hypertension. Review of Systems General: Reports: 10 or more systems reviewed and unremarkable except in HPI and below PFSH ED PFSH: Medical History Atrophic vaginitis Chest pain Chronic back pain greater than 3 months duration Chronic neck and back pain COPD (chronic obstructive pulmonary disease) Encounter for long-term opiate analgesic use Enrolled in chronic care management Essential hypertension Fibromyalgia GERD (gastroesophageal reflux disease) History of trigger finger trigger finger release on right hand thumb, 2nd finger and 4th finger Hyperlipemia, mixed Neck pain of over 3 months duration Obesity Opioid contract exists ALFRED (obstructive sleep apnea) Osteoarthritis Polycythemia Restless legs Shortness of breath Vitamin D deficiency Surgical History Amputation of left arm History of carpal tunnel surgery of right wrist Hx laparoscopic cholecystectomy 05/18/09 Hx of amputation 1975 left arm due to tractor accident performed in [place] Hx of decompression of ulnar nerve right ulnar nerve transposition of right ulnar nerve 06/01/09 Hx of hysterectomy 1998 Hx of removal of cyst behind ear as child Hx of shoulder surgery open [place]romoplasty of right [place] [facility] [place] Unknown No problems noted. Father Cancer Lung Hypertension Sister Hypertension Mother Stroke Social History Smoking and tobacco status: current every day smoker cigarettes Second hand smoke exposure: No Smoking risk assessment/counseling performed?: Yes Tobacco counseling given: provider counseling and counseling >3 minutes Alcohol intake: never Desire information about alcohol rehabilitation?: No Counseling given: No Substance/Drug Use: never Desire information about substance/drug rehabilitation?: No Counseling given: No Caregiver/support person: Yes Lives independently: Yes Household members: spouse Housing: House Marital status: service: No Current occupational status: employed Current occupation: [employer] Do you think of yourself as: Straight/Heterosexual Current gender identity: Female Physical Exam Const: COMMON NORMALS: no acute distress, average body habitus, patient oriented x3, no limitations, healthy appearing, alert and well nourished HENMT: COMMON NORMALS: normocephalic, atraumatic, hearing grossly normal bilaterally, external ears normal, Normal external nose present and moist oral mucous membranes HEAD & SCALP: normocephalic and atraumatic NOSE: Normal external nose present EXTERNAL EAR: Yes external ears normal Neck/C-Spine: COMMON NORMALS: full ROM, no lymphadenopathy, supple, no meningeal signs, no JVD and Thyroid normal THYROID: Thyroid normal Chest: COMMONS NORMALS: normal inspection of the chest and normal palpation of entire chest wall Resp: COMMON NORMALS: normal respiratory effort, No retractions, No use of accessory muscles and clear to auscultation bilaterally AUSCULTATION: clear to auscultation bilaterally Cardio: COMMON NORMALS: no JVD, regular rate, regular rhythm, S1 normal heart sound present, S2 normal heart sound present, No gallops present (Cardio), No clicks present (Cardio), No murmurs present (Cardio) and No rub (Cardio) RATE: regular rate RHYTHM: regular rhythm HEART SOUNDS: S1 normal heart sound present and S2 normal heart sound present GI: COMMON NORMALS: Normal to inspection, nondistended, normoactive bowel sounds present, Soft to palpation, non-tender, No hepatosplenomegaly present and no masses PALPATION: Yes Soft to palpation and Yes No hepatosplenomegaly present : COMMON NORMALS: Yes no CVA tenderness BLADDER/KIDNEY EXAM: Yes no CVA tenderness Back/Pelvis: COMMON NORMALS: no CVA tenderness Neuro: COMMON NORMALS: patient oriented x3 SENSORIUM/ORIENTATION: Yes alert MENINGEAL SIGNS: Yes no meningeal signs Course Vital Signs: Vital signs: Vital Signs Temperature 98.6 F 06/20/23 13:07 Pulse Rate 102 H 06/20/23 15:30 Respiratory Rate 18 06/20/23 15:30 Blood Pressure 190/102 06/20/23 15:30 Pulse Oximetry 98 06/20/23 15:30 Oxygen Delivery Me thod Room Air 06/20/23 15:30 MDM - Chest Pain Medical Decision Making Patient left AGAINST MEDICAL ADVICE before further testing was completed Differential Diagnosis Unlikely acute massive pulmonary embolism, acute respiratory failure, acute myocardial infarction, cardiac arrest or sudden cardiac Medical Records I reviewed the patient's medical records. Lab Data I reviewed the patient's lab results. 06/20/23 13:22 06/20/23 13:22 Radiology Impressions Chest X-Ray 06/20/23 13:13 IMPRESSION: No acute findings. Laboratory Results WBC 9.3 10^3/uL (4.0-10.0) 06/20/23 13:22 RBC 5.56 10^6/uL (4.1-5.3) H 06/20/23 13:22 Hgb 15.6 g/dL (11.5-15.3) H 06/20/23 13:22 Hct 47.7 % (37.0-47.0) H 06/20/23 13:22 MCV 85.8 fl (81-99) 06/20/23 13:22 MCH 28.1 pg (28.0-34.0) 06/20/23 13:22 MCHC 32.7 g/dL (30.0-36.0) 06/20/23 13:22 RDW 13.2 % (12.1-15.1) 06/20/23 13:22 Plt Count 249 10^3/cmm (130-400) 06/20/23 13:22 MPV 9.7 fL (7.4-10.4) 06/20/23 13:22 Neut % (Auto) 72.0 % 06/20/23 13:22 Lymph % (Auto) 19.5 % 06/20/23 13:22 [place] % (Auto) 6.3 % 06/20/23 13:22 Eos % (Auto) 1.5 % 06/20/23 13:22 Baso % (Auto) 0.4 % 06/20/23 13:22 Neut # (Auto) 6.69 10^3/uL (1.8-7.7) 06/20/23 13:22 Lymph # (Auto) 1.8 10^3/uL (0.8-4.8) 06/20/23 13:22 [place] # (Auto) 0.6 10^3/uL (0.2-0.9) 06/20/23 13:22 Eos # (Auto) 0.1 10^3/uL (0.0-0.8) 06/20/23 13:22 Baso # (Auto) 0.0 10^3/uL (0.0-0.1) 06/20/23 13:22 Nucleated RBC % (auto) 0 % 06/20/23 13:22 Nucleated RBCs # 0.0 /100WBC 06/20/23 13:22 PT 13.10 SECONDS (12.1-14.9) 06/20/23 13:22 INR 0.96 (0.8-1.2) 06/20/23 13:22 Sodium 138 mmol/L (136-145) 06/20/23 13:22 Potassium 3.8 mmol/L (3.5-5.1) 06/20/23 13:22 Chloride 101 mmol/L (98-107) 06/20/23 13:22 Carbon Dioxide 25 mmol/L (22-29) 06/20/23 13:22 Anion Gap 15.8 (5-19) 06/20/23 13:22 BUN 10 mg/dL (6-20) 06/20/23 13:22 Creatinine 0.8 mg/dL (0.5-0.9) 06/20/23 13:22 GFR Calculation 73.4 mL/min (90-130) L 06/20/23 13:22 Glucose 100 mg/dL (65-115) 06/20/23 13:22 Calculated Osmolality 285 mOsm/kg (285-295) 06/20/23 13:22 Calcium 8.8 mg/dL (8.5-10.5) 06/20/23 13:22 Total Bilirubin 0.3 mg/dL (0.15-1.2) 06/20/23 13:22 AST 16 U/L (0-32) 06/20/23 13:22 ALT 14 U/L (0-33) 06/20/23 13:22 Alkaline Phosphatase 93 U/L (35-105) 06/20/23 13:22 Troponin T Baseline 10 ng/L (0-10) 06/20/23 13:22 Troponin T 120 Minute 8.81 ng/L (0-10) 06/20/23 15:06 Delta Troponin T -1.19 ABS# (0-10) L 06/20/23 15:06 NT-Pro-B Natriuret Pep 493 pg/mL (0-125) H 06/20/23 13:22 Total Protein 7.2 g/dL (6.6-8.7) 06/20/23 13:22 Albumin 4.1 g/dL (3.5-5.2) 06/20/23 13:22 Globulin 3.1 g/dL (1.3-4.6) 06/20/23 13:22 Urine Color Yellow (Yellow) 06/20/23 13:16 Urine Appearance Clear (CLEAR) 06/20/23 13:16 Urine pH 5 (5-7) 06/20/23 13:16 Ur Specific [place] 1.010 (1.005-1.030) 06/20/23 13:16 Urine Protein Neg (Negative) 06/20/23 13:16 Urine Glucose (UA) Norm (Normal) 06/20/23 13:16 Urine Ketones Negative (Negative) 06/20/23 13:16 Urine Blood 2+ (Negative) H 06/20/23 13:16 Urine Nitrate Negative (Negative) 06/20/23 13:16 Urine Bilirubin Neg (Negative) 06/20/23 13:16 Urine Urobilinogen Norm mg/dL (Negative) 06/20/23 13:16 Ur Leukocyte Esterase Negative (Negative) 06/20/23 13:16 Urine RBC 5-10 /hpf (0-2) H 06/20/23 13:16 Urine WBC 0-4 /hpf (0-5) H 06/20/23 13:16 Ur Squamous Epith Cells 0-4 /hpf (0-5) H 06/20/23 13:16 Amorphous Sediment Not Reportable 06/20/23 13:16 Urine Bacteria 3+ /hpf (NONE) H 06/20/23 13:16 EKG Data EKG 1: I personally reviewed and interpreted this EKG as follows: EKG interpretation date: 06/20/23 EKG interpretation time: 14:11 Interpretation: EKG showed normal sinus rhythm with a ventricular rate 68 bpm, DC interval 181, QRS duration 95, QTc of 431, EKG 2: I personally reviewed and interpreted this EKG as follows: EKG interpretation date: 06/20/23 EKG interpretation time: 15:09 Prior EKG tracings: available for review Interpretation: EKG shows normal sinus rhythm, ventricular rate 63 bpm, DC interval 181, QRS duration 78, QTc of 466, no ST-T wave changes Discharge Plan Discharge Patient Disposition: Home Clinical Impression: Left against medical advice Condition: Stable Prescriptions: No Action trazodone 50 mg tablet 50 mg PO BEDTIME PRN (Reason: insomnia) Qty: 30 2RF Spiriva Respimat 2.5 mcg/actuation mist 2 puff INHALATION QAM Qty: 4 3RF clonidine HCl 0.1 mg tablet See Rx Instructions .ROUTE .COMPLEX Qty: 30 2RF Dose Instruction: TAKE ONE TABLET BY MOUTH TWICE DAILY NEEDED FOR SYSTOLIC BLOOD PRESSURE GREATER THAN 180 OR DIASTOLIC BLOOD PRESSURE GREATER THAN 90 Rx Instructions: TAKE ONE TABLET BY MOUTH TWICE DAILY NEEDED FOR SYSTOLIC BLOOD PRESSURE GREATER THAN 180 OR DIASTOLIC BLOOD PRESSURE GREATER THAN 90 oxycodone 5 mg tablet 5 mg PO Q8H MDD 3 tabs PRN (Reason: Pain) tizanidine 4 mg tablet 4 mg PO TID PRN (Reason: muscle spasticity) Detrol LA 4 mg capsule,extended release 24hr 4 mg PO QAM amlodipine 5 mg tablet 5 mg PO BEDTIME dicyclomine 20 mg tablet 20 mg PO TID PRN (Reason: Abdominal Pain) ropinirole 2 mg tablet 4 mg PO BEDTIME Vitamin D2 1,250 mcg (50,000 unit) capsule 1,250 mcg PO Q7D Rx Instructions: on albuterol sulfate 90 mcg/actuation HFA aerosol inhaler 2 puff inhalation Q6H PRN (Reason: Shortness Of Breath) esomeprazole magnesium 20 mg capsule,delayed release(DR/EC) 20 mg PO BID Crestor 5 mg tablet 5 mg PO BEDTIME valsartan-hydrochlorothiazide 320-25 mg tablet 1 tab PO QAM fenofibrate nanocrystallized 145 mg tablet 145 mg PO DAILY naloxone 4 mg/actuation spray,non-aerosol 4 mg intranasal Q2M PRN (Reason: overdose) Rx Instructions: spray 1 dose into ONE nostril; alternate nostrils w each dose until help arrives Discharge Orders: Discharge ED (Routine); Ordered 06/23/23 Ordered By: Chacho Barrientos Referrals: Christina Bray MD [Primary Care Provider] - Patient Instructions: Opioid Safety, Pain Management Stand Alone Forms: Work/School Release Coding Level of Care Code ED Sap Ppm Consultant for Scooby Roper
[2023-06-20 13:42] LABS: INR 0.96 (0.8-1.2)
[2023-06-20 13:48] LABS: Troponin(5th) Baseline 10 ng/L (0-10)
[2023-06-20 14:01] VITALS: BP 217/128; PULSE 66; RESP 16; O2SAT 98
[2023-06-20] MEDS: cloNIDine 0.1 mg Tablet 0.2 MG PO (14:01)
[2023-06-20 14:10] LABS: Add Urine Microscopic? YES; Bilirubin Urine Neg (Negative); Blood Urine 2+ (Negative); Glucose Urine UA Norm (Normal); Ketones Urine Negative (Negative); Leukocyte Esterase Urine Negative (Negative); Nitrate Urine Negative (Negative); Protein Urine Neg (Negative); Urine Appearance Clear (CLEAR); Urine Color Yellow (Yellow); Urobilinogen Urine Norm (Negative); pH Urine 5 (5-7)
[2023-06-20 14:11] LABS: Alanine Aminotransferase 14 U/L (0-33); Albumin Level 4.1 g/dL (3.5-5.2); Alkaline Phosphatase 93 U/L (35-105); Blood Urea Nitrogen 10 mg/dL (6-20); Calcium 8.8 mg/dL (8.5-10.5); Carbon Dioxide 25 mmol/L (22-29); Chloride 101 mmol/L (98-107); Globulin 3.1 g/dL (1.3-4.6); Glomerular Filtration Rate 73.4 mL/min (90-130); Glucose 100 mg/dL (65-115); NT Pro B Type Natriuretic Pept 493 pg/mL (0-125); Osmolality Calculated 285 mOsm/kg (285-295); Sodium 138 mmol/L (136-145); Total Bilirubin 0.3 mg/dL (0.15-1.2); Total Protein 7.2 g/dL (6.6-8.7)
[2023-06-20 14:11] LABS: Add Urine Culture? Yes; Bacteria Urine 3+ /hpf; Squamous Epithelial Cell Urine 0-4 /hpf (0-5); WBC Urine 0-4 /hpf (0-5)
[2023-06-20 14:13] LABS: Anion Gap 15.8 (5-19); Aspartate Amino Transferase 16 U/L (0-32); Potassium 3.8 mmol/L (3.5-5.1)
--- NOTE | 2023-06-20 15:14 | ECG_ITS ---
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 Measurements Intervals [place] Rate: 63 P: 66 PA: 181 QRS: 48 QRSD: 78 T: 61 QT: 458 QTc: 472 Interpretive Statements SINUS RHYTHM POSSIBLE RIGHT ATRIAL ENLARGEMENT [0.25mV P-WAVE] POSSIBLE LEFT ATRIAL ENLARGEMENT [-0.1mV P-WAVE IN V1/V2] Compared to ECG 06/20/2023 14:11:14 No significant changes Electronically Signed On 06-20-2023 17:13:25 CDT by Eli Goins M.D. [id number]
[2023-06-20 15:30] VITALS: BP 190/102; PULSE 102; RESP 18; O2SAT 98
[2023-06-20 15:52] LABS: Troponin 5 2HR 8.81 ng/L (0-10); Troponin 5 2HR Delta -1.19 ABS# (0-10)
== END 2023-06-20 15:43 | disposition home or self-care (01) ==
PROVIDERS: Emergency Provider Emergency Medicine; PCP Family Medicine
DX: R07.9 Chest pain, unspecified (principal); Z53.21 Procedure and treatment not carried out due to patient leaving prior to being seen by health care provider; F17.210 Nicotine dependence, cigarettes, uncomplicated; J44.9 Chronic obstructive pulmonary disease, unspecified; I10 Essential (primary) hypertension; E78.2 Mixed hyperlipidemia; Z79.899 Other long term (current) drug therapy
CPT/HCPCS: 36415; 71045; 80053; 81001; 83880; 84484; 85025; 85610; 87077; 87086; 87186; 93005; 99285

== ENCOUNTER 2023-11-13 13:49 | Outpatient (CLI) | payer MEDICARE, SELFPAY ==
--- NOTE | 2023-11-13 14:30 | MR_ITS ---
WS: [id number] MRI LEFT KNEE NONCONTRAST TECHNIQUE: Axial PD, coronal PD fat sat, coronal PD, sagittal PD, and sagittal PD fat-sat images zuhaira gauravd. CLINICAL INFORMATION: M25.562 - Pain in left knee COMPARISON: MRI 2012 FINDINGS: Distal quadriceps and patellar tendons are intact. Moderate suprapatellar effusion. Hypertrophic parker lla. ACL and PCL are intact. Moderate to advanced tricompartmental arthritis progressed since 2012. C hronic thinning of the medial and lateral meniscus. No acute appearing meniscal tears. Moderate to advanced chondromalacia patella. No subchondral edema. Medial and lateral patellar retina culum appear intact. Small lobulated popliteal cyst. Medial and lateral collateral ligaments appear i ntact. Normal popliteus. Subchondral cystic change or intraosseous ganglion cyst along the posterior intercondylar notch. IMPRESSION: 1. Moderate to advanced tricompartmental arthritis progressed compared to previous. 2. ACL and PCL are intact. 3. Advanced chondromalacia patella. No subchondral edema. 4. Moderate suprapatellar effusion. 5. No acute appearing meniscal tears. Chronic thinning of the medial and lateral meniscus. 6. Intraosseous ganglion cyst or subchondral cystic change along the posterior intercondylar notch. Outbridge grading:
== END 2023-11-13 13:50 | disposition home or self-care (01) ==
LOC: RAD 13:49
PROVIDERS: PCP Family Medicine; Visit Provider Family Medicine
DX: M25.562 Pain in left knee (principal); M17.12 Unilateral primary osteoarthritis, left knee; M22.42 Chondromalacia patellae, left knee; M25.462 Effusion, left knee
CPT/HCPCS: 73721

== ENCOUNTER → 2023-12-27 09:21 | Outpatient (BNVA) | payer OTHER, SELFPAY | PROVIDERS: PCP Family Medicine; Referring Provider Family Medicine; Visit Provider Specialist | DX: M25.562 Pain in left knee (principal); M17.12 Unilateral primary osteoarthritis, left knee | CPT/HCPCS: 73560; 73565; 99204 ==

== ENCOUNTER 2024-08-07 12:04 | Outpatient (CLI) | payer OTHER, SELFPAY ==
[2024-08-07 13:00] VITALS: PULSE 71; RESP 18; O2SAT 97
[2024-08-07] MEDS: albuterol 2.5 mg/3 mL Neb INHALATION (13:00)
[2024-08-07 13:04] VITALS: PULSE 73
== END 2024-08-07 12:05 | disposition home or self-care (01) ==
LOC: RT 12:06
PROVIDERS: PCP Family Medicine; Visit Provider Pediatrics Neonatal-Perinatal Medicine
DX: Z02.71 Encounter for disability determination (principal); J44.9 Chronic obstructive pulmonary disease, unspecified; R94.2 Abnormal results of pulmonary function studies
CPT/HCPCS: 94060; 94729; J7613

== ENCOUNTER → 2024-12-09 11:35 | Outpatient (BNVA) | payer MEDICAID, SELFPAY | PROVIDERS: PCP Family Medicine; Visit Provider Clinical Nurse Specialist Adult Health | DX: J06.9 Acute upper respiratory infection, unspecified (principal) | CPT/HCPCS: 87400; 87426 ==

== ENCOUNTER → 2024-12-31 10:59 | Outpatient (BNVA) | payer MEDICARE, MEDICAID, SELFPAY | PROVIDERS: PCP Clinical Nurse Specialist Adult Health; Visit Provider Clinical Nurse Specialist Adult Health | DX: I10 Essential (primary) hypertension (principal); M79.7 Fibromyalgia; E55.9 Vitamin D deficiency, unspecified | CPT/HCPCS: 80053; 80061; 82306; 84443; 85025 ==